=== PATIENT | male | born 1955 | race Caucasian/White ===

== ENCOUNTER → 2019-12-24 10:39 | Outpatient (BNVA) | payer BC, SELFPAY | PROVIDERS: Family Provider Family Medicine; PCP Family Medicine; Visit Provider Family Medicine | DX: I10 Essential (primary) hypertension (principal); J44.9 Chronic obstructive pulmonary disease, unspecified; E78.2 Mixed hyperlipidemia | CPT/HCPCS: 80053; 80061; 85007; 85027 ==

== ENCOUNTER → 2020-07-02 10:00 | Outpatient (BNVA) | payer BC, SELFPAY | PROVIDERS: Family Provider Family Medicine; PCP Family Medicine; Visit Provider Family Medicine | DX: E78.2 Mixed hyperlipidemia (principal); E55.9 Vitamin D deficiency, unspecified | CPT/HCPCS: 80053; 80061; 82306; 85025 ==

== ENCOUNTER → 2020-10-06 08:43 | Outpatient (BNVA) | payer BC, SELFPAY | PROVIDERS: Family Provider Family Medicine; PCP Family Medicine; Visit Provider Family Medicine | DX: D75.1 Secondary polycythemia (principal) | CPT/HCPCS: 85025 ==

== ENCOUNTER → 2020-12-29 09:22 | Outpatient (BNVA) | payer BC, SELFPAY | PROVIDERS: Family Provider Family Medicine; PCP Family Medicine; Visit Provider Family Medicine | DX: Z12.5 Encounter for screening for malignant neoplasm of prostate (principal); I10 Essential (primary) hypertension; D75.1 Secondary polycythemia; E55.9 Vitamin D deficiency, unspecified | CPT/HCPCS: 80053; 80061; 82306; 85025; G0103 ==

== ENCOUNTER → 2021-04-08 09:37 | Outpatient (BNVA) | payer BC, SELFPAY | PROVIDERS: Family Provider Family Medicine; PCP Family Medicine; Visit Provider Family Medicine | DX: E78.2 Mixed hyperlipidemia (principal); I10 Essential (primary) hypertension; I25.10 Atherosclerotic heart disease of native coronary artery without angina pectoris | CPT/HCPCS: 80053; 80061; 85025 ==

== ENCOUNTER → 2021-04-22 08:36 | Outpatient (BNVA) | payer BC, SELFPAY | PROVIDERS: Family Provider Family Medicine; PCP Family Medicine; Visit Provider Family Medicine | DX: D75.1 Secondary polycythemia (principal) | CPT/HCPCS: 85025 ==

== ENCOUNTER → 2021-05-20 08:29 | Outpatient (BNVA) | payer BC, SELFPAY | PROVIDERS: Family Provider Family Medicine; PCP Family Medicine; Visit Provider Family Medicine | DX: D75.1 Secondary polycythemia (principal) | CPT/HCPCS: 85025 ==

== ENCOUNTER → 2021-09-16 12:08 | Outpatient (BNVA) | payer BC, SELFPAY | PROVIDERS: Family Provider Family Medicine; PCP Family Medicine; Visit Provider Family Medicine | DX: E78.2 Mixed hyperlipidemia (principal); I10 Essential (primary) hypertension; J44.9 Chronic obstructive pulmonary disease, unspecified; Z87.820 Personal history of traumatic brain injury | CPT/HCPCS: 80053; 80061; 84443; 85025 ==

== ENCOUNTER → 2021-09-25 06:58 | Day surgery (SDC) | payer BC, SELFPAY ==
[2021-09-25 07:08] VITALS: BP 149/84; PULSE 67; RESP 20; TEMP 36.4; O2SAT 97; BMI 28.1
== END ==
PROVIDERS: PCP Family Medicine; Visit Provider Family Medicine
DX: D75.1 Secondary polycythemia (principal)
CPT/HCPCS: 99195

== ENCOUNTER → 2021-12-08 11:39 | Outpatient (BNVA) | payer BC, SELFPAY | PROVIDERS: PCP Family Medicine; Visit Provider Family Medicine | DX: E78.5 Hyperlipidemia, unspecified (principal); I10 Essential (primary) hypertension; I25.10 Atherosclerotic heart disease of native coronary artery without angina pectoris | CPT/HCPCS: 80053; 80061; 85025 ==

== ENCOUNTER → 2022-03-24 13:07 | Outpatient (BNVA) | payer BC, SELFPAY | PROVIDERS: PCP Family Medicine; Visit Provider Family Medicine | DX: E55.9 Vitamin D deficiency, unspecified (principal); I10 Essential (primary) hypertension; E78.5 Hyperlipidemia, unspecified; J44.9 Chronic obstructive pulmonary disease, unspecified; E78.2 Mixed hyperlipidemia; Z87.820 Personal history of traumatic brain injury; D75.1 Secondary polycythemia | CPT/HCPCS: 80053; 80061; 82306; 85025 ==

== ENCOUNTER → 2022-03-26 10:46 | Day surgery (SDC) | payer BC, SELFPAY ==
[2022-03-26 11:18] VITALS: BP 143/83; PULSE 76; RESP 18; TEMP 36.9; O2SAT 92
== END ==
PROVIDERS: PCP Family Medicine; Visit Provider Family Medicine
DX: D75.1 Secondary polycythemia (principal)
CPT/HCPCS: 99195

== ENCOUNTER → 2022-06-14 09:46 | Outpatient (BNVA) | payer BC, SELFPAY | PROVIDERS: PCP Family Medicine; Visit Provider Family Medicine | DX: Z12.5 Encounter for screening for malignant neoplasm of prostate (principal); E78.5 Hyperlipidemia, unspecified; I10 Essential (primary) hypertension; I25.10 Atherosclerotic heart disease of native coronary artery without angina pectoris | CPT/HCPCS: 80053; 80061; 85025; G0103 ==

== ENCOUNTER → 2022-09-15 12:40 | Outpatient (BNVA) | payer BC, SELFPAY | PROVIDERS: PCP Family Medicine; Visit Provider Family Medicine | DX: D75.1 Secondary polycythemia (principal); E55.9 Vitamin D deficiency, unspecified; J44.9 Chronic obstructive pulmonary disease, unspecified; E78.2 Mixed hyperlipidemia; I10 Essential (primary) hypertension | CPT/HCPCS: 80053; 80061; 82306; 84443; 85025 ==

== ENCOUNTER → 2022-12-16 10:48 | Outpatient (BNVA) | payer BC, SELFPAY | PROVIDERS: PCP Family Medicine; Visit Provider Family Medicine | DX: D75.1 Secondary polycythemia (principal) | CPT/HCPCS: 85025 ==

== ENCOUNTER → 2023-03-15 09:56 | Outpatient (BNVA) | payer BC, SELFPAY | PROVIDERS: PCP Family Medicine; Visit Provider Family Medicine | DX: D75.1 Secondary polycythemia (principal); E55.9 Vitamin D deficiency, unspecified; J44.9 Chronic obstructive pulmonary disease, unspecified; E78.5 Hyperlipidemia, unspecified; E78.2 Mixed hyperlipidemia; I10 Essential (primary) hypertension | CPT/HCPCS: 80053; 80061; 82306; 84443; 85025 ==

== ENCOUNTER → 2023-06-14 09:27 | Outpatient (BNVA) | payer BC, SELFPAY | PROVIDERS: PCP Family Medicine; Visit Provider Family Medicine | DX: D75.1 Secondary polycythemia (principal) | CPT/HCPCS: 85025 ==

== ENCOUNTER → 2023-09-12 10:40 | Outpatient (BNVA) | payer BC, SELFPAY | PROVIDERS: PCP Family Medicine; Visit Provider Family Medicine | DX: D75.1 Secondary polycythemia (principal); E78.5 Hyperlipidemia, unspecified; I10 Essential (primary) hypertension; J44.9 Chronic obstructive pulmonary disease, unspecified; E78.2 Mixed hyperlipidemia | CPT/HCPCS: 80053; 80061; 84443; 85025 ==

== ENCOUNTER → 2023-12-12 10:15 | Outpatient (BNVA) | payer BC, SELFPAY | PROVIDERS: PCP Family Medicine; Visit Provider Family Medicine | DX: Z12.5 Encounter for screening for malignant neoplasm of prostate (principal); I10 Essential (primary) hypertension; D75.1 Secondary polycythemia | CPT/HCPCS: 80053; 85025; G0103 ==

== ENCOUNTER → 2024-03-20 09:59 | Outpatient (BNVA) | payer BC, SELFPAY | PROVIDERS: PCP Family Medicine; Visit Provider Family Medicine | DX: I10 Essential (primary) hypertension (principal); E78.2 Mixed hyperlipidemia; D75.1 Secondary polycythemia | CPT/HCPCS: 80053; 80061; 84443; 85025 ==

== ENCOUNTER → 2024-06-19 13:00 | Outpatient (BNVA) | payer BC, SELFPAY | PROVIDERS: PCP Family Medicine; Visit Provider Family Medicine | DX: E55.9 Vitamin D deficiency, unspecified (principal); E78.2 Mixed hyperlipidemia; I10 Essential (primary) hypertension; J44.9 Chronic obstructive pulmonary disease, unspecified | CPT/HCPCS: 80053; 80061; 82306; 84443; 85025 ==

== ENCOUNTER → 2024-09-18 09:16 | Outpatient (BNVA) | payer BC, SELFPAY | PROVIDERS: PCP Family Medicine; Visit Provider Nurse Practitioner Family | DX: E55.9 Vitamin D deficiency, unspecified (principal) | CPT/HCPCS: 80053; 80061; 82306; 85025 ==

== ENCOUNTER 2024-10-24 09:46 | Outpatient (CLI) | payer BC, SELFPAY ==
--- NOTE | 2024-10-24 10:00 | CT_ITS ---
WS: [id number] LDCT LUNG CANCER SCREENING TECHNIQUE: Noncontrast CT of the chest with coronal and sagittal reformatted images. CLINICAL INFORMATION: F17.210 - Nicotine dependence, cigarettes, uncomplicated COMPARISON: None. DLP: 64.31 mGy.cm DIvol: Mean CTDIvol: 1.40 (mGy) All CT scans at [facility] use at least one of these dose optimization techniques: automat ed exposure control; mA and/or kV adjustment per patient size (includes targeted exams where dose is matched to clinical indication); or iterative reconstruction. FINDINGS: Lungs are well aerated. Pleural thickening in the lower lobes with pleural plaques.No suspi cious pulmonary parenchymal abnormalities. Subsegmental atelectasis in the lung bases.a a few tiny mi cronodules in the LEFT lower lobe. Cardiomegaly. Aortic calcification. Coronary calcification. Normal caliber thoracic aorta. No medias tinal or hilar lymphadenopathy. No axillary lymphadenopathy. Tiny esophageal hiatal hernia. Pleural calcifications in the lower lobes. Adrenal glands are normal. Partially visualized RIGHT upper pole renal cyst measuring 4.[address]/CT lung screening [id number] IMPRESSION: LUNG-RADS: 2-Benign Appearance or Behavior FOLLOW UP: 12 Month: Continue annual screening with LDCT
== END 2024-10-24 09:47 | disposition home or self-care (01) ==
LOC: RAD 09:50
PROVIDERS: PCP Family Medicine; Visit Provider Nurse Practitioner Family
DX: Z12.2 Encounter for screening for malignant neoplasm of respiratory organs (principal); F17.210 Nicotine dependence, cigarettes, uncomplicated; J98.11 Atelectasis; J92.9 Pleural plaque without asbestos; R91.8 Other nonspecific abnormal finding of lung field; I70.0 Atherosclerosis of aorta; I25.84 Coronary atherosclerosis due to calcified coronary lesion; J84.10 Pulmonary fibrosis, unspecified; N28.1 Cyst of kidney, acquired
CPT/HCPCS: 71271

== ENCOUNTER 2024-11-20 12:59 | Inpatient (IN) | payer BC, SELFPAY ==
[2024-11-20] VITALS (70 sets, daily range): BP systolic 87–163; BP diastolic 56–97; PULSE 98–135; RESP 16–38; TEMP 36.9; O2SAT 87–98; BMI 28.1; BMI 25.4
--- NOTE | 2024-11-20 13:16 | XRR_ITS ---
PROCEDURE INFORMATION: Exam: XR Chest Exam date and time: 11/20/2024 1:23 PM Age: 69 years old Clinical indication: Cough; Additional info: Cough, hypoxia TECHNIQUE: Imaging protocol: Radiologic exam of the chest. Views: 1 view. COMPARISON: CT lung screening [id number] 10/24/2024 10:03 AM FINDINGS: Lungs: Unchanged scarring in both lower lungs. Otherwise, unremarkable. Pleural spaces: Unchanged pleural scarring. No convincing evidence of pleural effusion. No pneumothorax. Heart/Mediastinum: Unremarkable. No cardiomegaly. Bones/joints: Unchanged mild scoliosis and spondylosis. Unchanged surgical hardware attached to the cervical spine. Otherwise, unremarkable. XR/XR chest 1V portable [id number] IMPRESSION: 1. No obvious acute disease. 2. Findings as above are believed to be chronic and unchanged.
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
--- NOTE | 2024-11-20 13:22 | ECG_ITS ---
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 Measurements Intervals [place] Rate: 102 P: 76 CO: 132 QRS: 62 QRSD: 102 T: 9 QT: 343 QTc: 448 Interpretive Statements SINUS TACHYCARDIA WITH OCCASIONAL VENTRICULAR PREMATURE COMPLEXES WITH OCCASIONAL SUPRAVENTRICULAR PREMATURE COMPLEXES RIGHT ATRIAL ENLARGEMENT [0.3mV P-WAVE] POSSIBLE LEFT ATRIAL ENLARGEMENT [-0.1mV P-WAVE IN V1/V2] NONSPECIFIC T-WAVE ABNORMALITY No previous ECG available for comparison Electronically Signed On 11-20-2024 23:59:09 RAW PRODUCTS DIRECTOR by Jaswinder Molina M.D. [email or web address]
[2024-11-20 13:30] LABS: Basophils % 0.3 %; Eosinophils % 0.2 %; Hematocrit 48.6 % (37-53); Lymphocytes # 1.9 10^3/uL (0.8-4.8); Lymphocytes % 13.5 %; Mean Corpuscular HGB Conc 30.9 g/dL (30-55); Mean Corpuscular Hemoglobin 25.7 pg (27-33); Mean Corpuscular Volume 83.4 fl (82-101); Mean Platelet Volume 10.3 fL (7.4-10.4); Monocytes # 1.3 10^3/uL (0.2-0.9); Monocytes % 8.7 %; Neutrophils # 10.98 10^3/uL (1.8-7.7); Neutrophils % 76.2 %; Nucleated Red Blood Cells % 0 %; Platelet Count 288 10^3/cmm (157-399); Red Blood Count 5.83 10^6/uL (3.85-5.65); Red Cell Distribution Width 20.2 % (12.1-15.1); White Blood Count 14.41 10^3/uL (3.29-11.43)
[2024-11-20 13:43] LABS: INR 1.02 (0.8-1.2); Partial Thromboplastin Time 33.4 SECONDS (23.9-36.7)
[2024-11-20 13:46] LABS: Lactic Sepsis W/Reflex 2.6 mmol/L (0.5-2.2)
[2024-11-20 13:48] LABS: Alanine Aminotransferase 14 U/L (0-41); Albumin Level 3.2 g/dL (3.5-5.2); Alkaline Phosphatase 78 U/L (40-130); Anion Gap 15.3 (5-19); Aspartate Amino Transferase 15 U/L (0-40); Blood Urea Nitrogen 44 mg/dL (8-23); Calcium 9.1 mg/dL (8.5-10.5); Carbon Dioxide 25 mmol/L (22-29); Chloride 101 mmol/L (98-107); Creatinine Clr Calc Pharmacy 66.8816; Globulin 4.2 g/dL (1.3-4.6); Glomerular Filtration Rate 66.4 mL/min (90-130); Glucose 112 mg/dL (65-115); Osmolality Calculated 296 mOsm/kg (285-295); Potassium 4.3 mmol/L (3.5-5.1); Sodium 137 mmol/L (136-145); Total Bilirubin 0.5 mg/dL (0.15-1.2); Total Protein 7.4 g/dL (6.6-8.7)
[2024-11-20] MEDS: ipratropium-albuterol 3 mL Neb INHALATION (13:54)
[2024-11-20 13:55] LABS: Procalcitonin 0.08 ng/mL (0-0.5)
[2024-11-20 14:02] LABS: Troponin(5th) Baseline 20 ng/L (0-15)
[2024-11-20] MEDS: oxymetazoline 0.05% Nasal Spray 15 mL 2 SPRAY NOSTRIL-L (15:10)
[2024-11-20 15:15] LABS: Reflex Lactate Order REFLEX LACTIC ORDERD
--- NOTE | 2024-11-20 15:15 | CTR_ITS ---
PROCEDURE INFORMATION: Exam: CTA Chest With Contrast Exam date and time: 11/20/2024 3:25 PM Age: 69 years old Clinical indication: Shortness of breath; Additional info: Tachy, hypoxic, tachypnea TECHNIQUE: Imaging protocol: Computed tomographic angiography of the chest with contrast. Exam focused on the arteries. 3D rendering (Not supervised by radiologist): MIP and/or 3D reconstructed images were created by the technologist. Radiation optimization: All CT scans at this facility use at least one of these dose optimization techniques: automated exposure control; mA and/or kV adjustment per patient size (includes targeted exams where dose is matched to clinical indication); or iterative reconstruction. Contrast material: OMNIPAQUE 350; Contrast volume: 100 ml; Contrast route: INTRAVENOUS (IV); COMPARISON: CT lung screening [id number] 10/24/2024 10:03 AM RADIATION DOSE METRICS: Total DLP (mGy-cm): 359.1 FINDINGS: Pulmonary arteries: Limited by slightly less than optimal pulmonary artery opacification. Limited by streak artifact. Limited by motion artifact. No obvious pulmonary embolism, but a small PE may not be evident given these limitations. Pulmonary arteries are normal in size. Aorta: Unremarkable. No aortic aneurysm. No aortic dissection. Lungs: Areas of scarring and subsegmental atelectasis in the lungs, mostly dependently and in the lower lungs. Less likely, some of this could be pneumonitis. Multiple tiny noncalcified pulmonary nodules bilaterally. Pleural spaces: Small amounts of pleural calcification could be due to old asbestos exposure, old hemothorax, or old empyema. No acute pleural abnormality. Heart: Mild cardiomegaly. No evidence of right heart strain. The right ventricular to left ventricular ratio is 0.95. Coronary arteries: Large amount of coronary artery calcification. Esophagus: Distal esophageal wall thickening. This could be esophagitis or neoplasm. Lymph nodes: Unremarkable. No enlarged lymph nodes. Kidneys: A simple right renal cyst needs no follow-up. Bones/joints: Mild scoliosis. Mild spondylosis. Surgical hardware attached to the lower cervical spine. Otherwise, unremarkable. Soft tissues: Otherwise, unremarkable visualized body wall. Otherwise, unremarkable soft tissues. Other findings: Otherwise, unremarkable visualized upper abdominal structures. CT/CT angio chest PE protcl [id number] IMPRESSION: 1. Limited by slightly less than optimal pulmonary artery opacification. Limited by streak artifact. Limited by motion artifact. No obvious pulmonary embolism, but a small PE may not be evident given these limitations. 2. Mild cardiomegaly. No evidence of right heart strain. The right ventricular to left ventricular ratio is 0.95. 3. Distal esophageal wall thickening. This could be esophagitis or neoplasm. Upper endoscopy for this is recommended. 4. Multiple tiny noncalcified pulmonary nodules bilaterally. For patients at low risk (minimal or absent history of smoking and of other known risk factors), no routine follow-up is indicated. For patients at high risk (history of smoking or of other known risk factors), consider optional CT Chest at 12 months. (Reference: Nara) 5. Additional details as above. COMMENTS: Consistent with the [place] [employer]'s Incidental Findings Committee white paper (J Am Petrona Radiol 2018): Any incidental renal lesion less than 1 cm or classified as too small to characterize, or any incidental cystic renal lesion characterized as simple-appearing, is likely benign. No follow-up imaging is recommended for these lesions per consensus recommendations based on imaging criteria. REFERENCES: Nara Torre, et al. Guidelines for Management of Incidental Pulmonary Nodules Detected on CT Images: From the Fleischner Society 2017. Radiology. 2017;284(1):228-243.
[2024-11-20 15:26] LABS: Bilirubin Urine Negative (Negative); Blood Urine Negative (Negative); Glucose Urine UA Negative (Normal); Ketones Urine Negative (Negative); Leukocyte Esterase Urine Negative (Negative); Nitrate Urine Negative (Negative); Protein Urine 1+ (Negative); Specific Gravity, Urine 1.021 (1.005-1.030); Urine Appearance Clear (CLEAR); Urine Color Yellow (Yellow); pH Urine 5.5 (5-7)
[2024-11-20] MEDS: iohexol 350 mg/mL 500 mL Btl (per mL) IV (15:26)
[2024-11-20 15:28] LABS: Add Urine Microscopic? YES; Bacteria Urine None Seen /hpf; Hyaline Casts Urine 34.74 /lpf; RBC Urine 0-2 /hpf (0-2); Squamous Epithelial Cell Urine 0-5 /hpf (0-5); WBC Urine 0-5 /hpf (0-5)
--- NOTE | 2024-11-20 15:39 | ECG_ITS ---
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1955 Requested By: Yesenia Rincon Order Number: [id number] Igor MD: MARY RODRIGEZ Measurements Intervals [place] Rate: 113 P: 73 MT: 128 QRS: 77 QRSD: 90 T: 14 QT: 354 QTc: 486 Interpretive Statements SINUS TACHYCARDIA NONSPECIFIC ST & T-WAVE ABNORMALITY ABNORMAL RHYTHM ECG Compared to ECG 11/20/2024 13:27:22 Ventricular premature complex(es) no longer present Atrial abnormality no longer present T-wave abnormality still present Electronically Signed On 11-26-2024 23:27:50 CHEMICAL PROJECT ENGINEER by MARY RODRIGEZ [email or web address]
[2024-11-20 15:47] LABS: UA Slide Review UA Slide Review Perf
[2024-11-20 16:23] LABS: Lactic Acid level (Lactate) 1.6 mmol/L (0.5-2.2)
[2024-11-20 16:27] LABS: Troponin 5 2HR 15.29 ng/L (0-15); Troponin 5 2HR Delta -4.71 ABS# (0-10)
[2024-11-20 17:21] LABS: NT Pro B Type Natriuretic Pept 789 pg/mL (0-125)
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
[2024-11-20] MEDS: piperacillin-tazobactam 3.375 GM in sodium chloride 0.9% (plus) 50 ML IV (17:43)
--- NOTE | 2024-11-20 17:46 | PC.NURSE ---
DUE TO PT CONSTANT NOSE BLEED, PT HAD A POSTERIOR RHINO ROCKET PLACED IN LEFT NARE BY DR MÉNDEZ. PT ALSO HAD TWO EPISODES OF VOMITING BRIGHT RED BLOODY EMESIS WITH CLOTS; APPROXIMATELY 500ML. DR MÉNDEZ AWARE. PT REMAINS ON BEDSIDE VITALS/CARDIAC MONITORING. PT IS A&O AT THIS TIME WITH PATENT AIRWAY AND EVEN RESPIRATIONS. DENIES FURTHER NEEDS AT THIS TIME.
[2024-11-20 18:42] LABS: Hematocrit 40.8 % (37-53)
[2024-11-20 20:03] LABS: Troponin 5 6HR 22.22 ng/L (0-15); Troponin 5 6HR Delta 2.22 ng/L (0-12)
[2024-11-20] MEDS: AZITHROMYCIN ADD-Vantage 500 MG in 0.9% NaCl ADD-Vantage 250 ML 250 MG IV (20:35)
[2024-11-20] MEDS: cefTRIAXone 1,000 mg SDV 1000 MG IVP (20:35)
[2024-11-20] MEDS: famotidine 20 mg/2 mL INJ IVP (20:37)
--- NOTE | 2024-11-20 20:44 | ECG_ITS ---
[employer] Test Date: 2024-11-20 Pat Name: Khadar Live Department: Room: [facility]05 Gender: Male Recreation Establishment Manager: : 1955 Requested By: Yesenia Rincon Order Number: [id number] Igor MD: MARY RODRIGEZ Measurements Intervals [place] Rate: 114 P: 75 HI: 138 QRS: 41 QRSD: 89 T: 24 QT: 317 QTc: 437 Interpretive Statements SINUS TACHYCARDIA POSSIBLE RIGHT ATRIAL ENLARGEMENT [0.25mV P-WAVE] LEFT ATRIAL ENLARGEMENT [-0.15mV P-WAVE IN V1/V2] NONSPECIFIC T-WAVE ABNORMALITY Compared to ECG 11/20/2024 15:39:41 Atrial abnormality now present T-wave abnormality still present Electronically Signed On 11-26-2024 23:23:08 FACILITY SERVICE ASSOCIATE by MARY RODRIGEZ [id number]
[2024-11-20] MEDS: sodium chloride 0.9% 1,000 ML 75 ML IV (21:45)
[2024-11-21] VITALS (38 sets, daily range): BP systolic 118–157; BP diastolic 65–93; PULSE 76–125; RESP 16–29; TEMP 36.3–37.1; O2SAT 87–95; BMI 25.0
[2024-11-21 00:36] LABS: Hematocrit 39.1 % (37-53)
[2024-11-21 04:37] LABS: Basophils % 0.3 %; Eosinophils % 0.3 %; Hematocrit 38.7 % (37-53); Lymphocytes # 2.5 10^3/uL (0.8-4.8); Lymphocytes % 16.5 %; Mean Corpuscular Hemoglobin 25.8 pg (27-33); Mean Platelet Volume 10.9 fL (7.4-10.4); Monocytes # 1.3 10^3/uL (0.2-0.9); Monocytes % 8.8 %; Neutrophils # 10.89 10^3/uL (1.8-7.7); Neutrophils % 73.4 %; Nucleated Red Blood Cells % 0 %; Platelet Count 245 10^3/cmm (157-399); Red Cell Distribution Width 19.8 % (12.1-15.1); White Blood Count 14.84 10^3/uL (3.29-11.43)
[2024-11-21 04:50] LABS: Alanine Aminotransferase 10 U/L (0-41); Alkaline Phosphatase 60 U/L (40-130); Anion Gap 11.6 (5-19); Aspartate Amino Transferase 12 U/L (0-40); Blood Urea Nitrogen 40 mg/dL (8-23); Calcium 8.4 mg/dL (8.5-10.5); Carbon Dioxide 29 mmol/L (22-29); Chloride 109 mmol/L (98-107); Creatinine Clr Calc Pharmacy 88.0597; Globulin 3.3 g/dL (1.3-4.6); Glomerular Filtration Rate 111.8 mL/min (90-130); Glucose 100 mg/dL (65-115); Osmolality Calculated 310 mOsm/kg (285-295); Potassium 4.6 mmol/L (3.5-5.1); Sodium 145 mmol/L (136-145); Total Bilirubin 0.4 mg/dL (0.15-1.2); Total Protein 6.3 g/dL (6.6-8.7)
--- NOTE | 2024-11-21 08:24 | ECG_ITS ---
[employer] Test Date: 2024-11-21 Pat Name: Khadar Live Department: Room: [facility]05 Gender: Male Enterprise Mobility Architect: : 1955 Requested By: Rommel Tejada Order Number: [id number] Reading MD: MARY RODRIGEZ Measurements Intervals [place] Rate: 116 P: 71 FL: 118 QRS: 37 QRSD: 95 T: 67 QT: 342 QTc: 477 Interpretive Statements SINUS TACHYCARDIA WITH SHORT FL INTERVAL WITH OCCASIONAL VENTRICULAR PREMATURE COMPLEXES LEFT ATRIAL ENLARGEMENT [-0.15mV P-WAVE IN V1/V2] POSSIBLE INFERIOR MYOCARDIAL INFARCTION , PROBABLY OLD [30 ms Q WAVE IN II/aVF] Compared to ECG 11/20/2024 20:44:31 Ventricular premature complex(es) now present Short FL interval now present Myocardial infarct finding now present T-wave abnormality no longer present Electronically Signed On 11-26-2024 23:22:58 LAY OUT MAKER by MARY RODRIGEZ [id number]
[2024-11-21] MEDS: famotidine 20 mg/2 mL INJ IVP ×2 (08:35→20:28)
[2024-11-21] MEDS: sodium chloride 0.9% 1,000 ML 75 ML IV (08:35)
--- NOTE | 2024-11-21 16:38 | P.PN_ITS ---
Subjective 2 Subjective: He reports he is doing well so far without recurrence of bleeding. He is having some productive cough. Vitals/I&O/Wt Last Vital Signs Temp 98.0 F 11/21/24 16:26 Pulse 89 11/21/24 16:26 Resp 17 11/21/24 16:26 BP 141/79 11/21/24 16:26 Pulse Ox 92 11/21/24 16:26 O2 Del Method Nasal Cannula 11/21/24 16:26 O2 Flow Rate 3.5 11/21/24 16:26 11/21/24 11/21/24 11/21/24 06:59 14:59 22:59 Intake Total 812.5 / 812.5 Output Total 425 / 1175 Balance -425 / 1177 812.5 / 812.5 Weight last 48 hrs Weight 74.5 kg Weight 76 kg Weight 83.915 kg Physical Exam 2 Const: COMMON NORMALS: patient oriented x3 and alert GENERAL APPEARANCE: c ooperative ORIENTATION/CONSCIOUSNESS: Yes awake HENMT: COMMON NORMALS: oropharynx normal OTHER: Nasal tamponade in the left nostril. Some dried crusted blood around the nostril and lips. Neck/C-Spine: COMMON NORMALS: no JVD Resp: COMMON NORMALS: normal respiratory effort AUSCULTATION: rhonchi (Few) Cardio: COMMON NORMALS: no JVD, regular rhythm, S1 normal heart sound present, S2 normal heart sound present and No murmurs present (Cardio) RHYTHM: regular rhythm HEART SOUNDS: S1 normal heart sound present and S2 normal heart sound present GI: COMMON NORMALS: Normal to inspection, nondistended, normoactive bowel sounds present, Soft to palpation and non-tender PALPATION: Yes Soft to palpation Extremity: COMMON NORMALS: no joint enlargement and no pedal edema Neuro: COMMON NORMALS: patient oriented x3 and moves all extremities S ENSORIUM/ORIENTATION: Yes alert Skin: COMMON NORMALS: no rashes or lesions noted GENERAL SKIN EXAM: no rashes or lesions noted Data 11/21/24 03:49 11/21/24 03:49 Micro: Microbiology 11/20/24 13:24 Blood Culture - Preliminary Blood NEGATIVE TO DATE 11/20/24 17:45 Blood Culture - Preliminary Blood SPECIMEN COLLECTED A&P Assessment and plan (1) Tachycardia: Sinus tachycardia, without obvious PE, although limited study CTA, he is otherwise feeling better. With new oxygen requirement, 3.5 L, not normally on oxygen, with productive cough, significant epistaxis, possible aspiration pneumonia/pneumonitis. With leukocytosis 14.84. For now continue empirically on antibiotic with ceftriaxone, azithromycin. Reassess vitals, oxygenation, blood counts. Add flutter valve. On review of EKG and do not see any extra P waves to suggest flutter. Monitor for risk of QT prolongation with azithromycin, repeat EKG. Obtain respiratory viral studies. Stop IV fluid. Monitor for fluid overload. (2) Hypoxia: Continue treatment of possible aspiration pneumonia. Check viral studies. No obvious PE on CTA. Stop IV fluids. Patient carries a diagnosis of COPD and uses inhalers at home. He is still actively smoking. He has approximately 19-skbn-woyy history. He has cut back to half a pack a day due to shortness of breath. He denies wanting to quit smoking at this time Empiric antibiotic coverage with ceftriaxone and azithromycin. Add flutter valve. Obtain sputum culture if able to provide. (3) Epistaxis: So far appears to have subsided. With possible aspiration pneumonia. Reviewed blood counts. For without rebleeding after replacement of anterior and posterior nasal packing. Continue nasal tamponade today, consider removal tomorrow. Tomorrow ENT will be back computational physicist as well. May transfer out of ICU. (4) Tobacco abuse: As above 61-kjhi-dsco history currently active smoker no intention to quit at this time (5) Vitamin D deficiency: Patient takes vitamin D2 1000 units daily (6) Hypotension: Resolved. Stop IV fluids. Amlodipine, hydrochlorothiazide, lisinopril, and metoprolol are all on hold. Patient when specifically asked did admit to dizziness upon standing at home for the last few years he has not reported this to his primary care physician nor has his regimen been altered in years. (7) HTN (hypertension): As above patient on low-doses of 4 different antihypertensives. All on hold due to hypotension and active bleeding on presentation Qualifiers: Hypertension type: essential hypertension Qualified Code(s): I10 - Essential (primary) hypertension (8) Pulmonary nodules: Will need follow-up assessment for incidental nodules on CT chest. (9) Esophageal thickening: Will need follow-up for endoscopy for incidental esophageal thickening on CT chest, possible esophagitis versus neoplasm. Plan Discussed with nursing. Discussed with rn field case manager. Attestations 2 Medical Necessity Statement*: Continue hospitalization for additional assessment of tachycardia, hypoxia, suspected aspiration pneumonia after severe epistaxis, nasal tamponade. and High MDM includes amount and/or complexity of data reviewed/ordered [ resulted lab(s)/test(s), ordered lab(s)/test(s), independent test interpretation and other healthcare professional discussion] and described risk of complication, morbidity or mortality of management as documented Diagnoses Tachycardia R00.0 Hypoxia R09.02 Epistaxis R04.0 Tobacco abuse Z72.0 Vitamin D deficiency E55.9 Hypotension I95.9 Essential hypertension I10 Hypertension type: essential hypertension Pulmonary nodules R91.8 Esophageal thickening K22.89
[2024-11-21] MEDS: cefTRIAXone 1,000 mg SDV 1000 MG IVP (20:28)
[2024-11-21] MEDS: AZITHROMYCIN ADD-Vantage 500 MG in 0.9% NaCl ADD-Vantage 250 ML 250 MG IV (20:28)
[2024-11-21 21:20] LABS: Adenovirus Not Detected (NOT DETECT); Chlamydia Pneumoniae Not Detected (NOT DETECT); Coronavirus 229E,HKU1,NL63,OC4 Not Detected (NOT DETECT); Human Metapneumovirus Not Detected (NOT DETECT); Human Rhinovirus/Enterovirus Not Detected (NOT DETECT); Influenza A Not Detected (NOT DETECT); Influenza A H1 Not Detected (NOT DETECT); Influenza A H1-2009 Not Detected (NOT DETECT); Influenza A H3 Not Detected (NOT DETECT); Influenza B Not Detected (NOT DETECT); Mycoplasma Pneumoniae Not Detected (NOT DETECT); Parainfluenza Virus Type 1 Not Detected (NOT DETECT); Parainfluenza Virus Type 2 Not Detected (NOT DETECT); Parainfluenza Virus Type 3 Not Detected (NOT DETECT); Parainfluenza Virus Type 4 Not Detected (NOT DETECT); Respiratory Syncytial Virus A Not Detected (NOT DETECT); Respiratory Syncytial Virus B Not Detected (NOT DETECT); SARS-COV-2 Not Detected (NOT DETECT)
--- NOTE | 2024-11-21 23:29 | ECG_ITS ---
[employer] [facility] Test Date: 2024-11-21 Pat Name: Khadar Live Department: Room: 269 Gender: Male Reinsurance Claims Analyst: : 1955 Requested By: Rommel Tejada Order Number: [id number] Reading MD: MARY RODRIGEZ Measurements Intervals [place] Rate: 103 P: 61 VA: 131 QRS: 31 QRSD: 94 T: 61 QT: 356 QTc: 467 Interpretive Statements SINUS TACHYCARDIA WITH OCCASIONAL VENTRICULAR PREMATURE COMPLEXES POSSIBLE LEFT ATRIAL ENLARGEMENT [-0.1mV P-WAVE IN V1/V2] POSSIBLE INFERIOR MYOCARDIAL INFARCTION , PROBABLY OLD [30 ms Q WAVE IN II/aVF] ABNORMAL RHYTHM ECG Compared to ECG 11/21/2024 08:35:30 Short [place] interval no longer present Myocardial infarct finding still present Electronically Signed On 11-23-2024 23:33:54 REVENUE COLLECTOR by MARY RODRIGEZ [id number]
[2024-11-22] VITALS (11 sets, daily range): BP systolic 112–142; BP diastolic 58–73; PULSE 86–106; RESP 14–20; TEMP 36.5–36.8; O2SAT 90–96
[2024-11-22 07:00] LABS: Basophils % 0.3 %; Eosinophils # 0.1 10^3/uL (0.0-0.8); Eosinophils % 0.5 %; Hematocrit 33.2 % (37-53); Lymphocytes # 1.6 10^3/uL (0.8-4.8); Lymphocytes % 16.2 %; Mean Corpuscular HGB Conc 29.8 g/dL (30-55); Mean Corpuscular Hemoglobin 26.7 pg (27-33); Mean Corpuscular Volume 89.5 fl (82-101); Mean Platelet Volume 10.5 fL (7.4-10.4); Monocytes # 0.8 10^3/uL (0.2-0.9); Monocytes % 7.8 %; Neutrophils # 7.11 10^3/uL (1.8-7.7); Neutrophils % 70.4 %; Nucleated Red Blood Cells % 0 %; Platelet Count 189 10^3/cmm (157-399); Red Blood Count 3.71 10^6/uL (3.85-5.65); Red Cell Distribution Width 19.8 % (12.1-15.1); White Blood Count 10.11 10^3/uL (3.29-11.43)
[2024-11-22 07:24] LABS: Anion Gap 7.3 (5-19); Blood Urea Nitrogen 21 mg/dL (8-23); Calcium 8.4 mg/dL (8.5-10.5); Carbon Dioxide 33 mmol/L (22-29); Chloride 109 mmol/L (98-107); Creatinine Clr Calc Pharmacy 88.4058; Glomerular Filtration Rate 133.6 mL/min (90-130); Glucose 81 mg/dL (65-115); Osmolality Calculated 302 mOsm/kg (285-295); Potassium 4.3 mmol/L (3.5-5.1); Sodium 145 mmol/L (136-145)
[2024-11-22] MEDS: famotidine 20 mg/2 mL INJ IVP ×2 (08:31→20:37)
--- NOTE | 2024-11-22 09:00 | ECG_ITS ---
[employer] Test Date: 2024-11-22 Pat Name: Khadar Live Department: Room: 269 Gender: Male Access Director: : 1955 Requested By: Rommel Tejada Order Number: [id number] Reading MD: MARY RODRIGEZ Measurements Intervals [place] Rate: 98 P: 72 CT: 133 QRS: 43 QRSD: 95 T: 127 QT: 355 QTc: 454 Interpretive Statements SINUS RHYTHM WITH FREQUENT VENTRICULAR PREMATURE COMPLEXES LEFT ATRIAL ENLARGEMENT [-0.15mV P-WAVE IN V1/V2] ST DEVIATION AND MODERATE T-WAVE ABNORMALITY, CONSIDER LATERAL ISCHEMIA [-0.1+ mV T-WAVE IN I/aVL/V5/V6] Compared to ECG 11/21/2024 23:29:36 T-wave abnormality now present Possible ischemia now present Sinus tachycardia no longer present Myocardial infarct finding no longer present Electronically Signed On 11-23-2024 23:33:40 MANAGER DECISION SUPPORT by MARY RODRIGEZ [id number]
--- NOTE | 2024-11-22 09:05 | PC.NURSE ---
Pt placed on O2 2L simple mask instead of 3LNC as he is a mouth breather and has a rhinorocket in left nare.
--- NOTE | 2024-11-22 11:22 | PC.NURSE ---
Oxygen sat 94% on 2L simple mask. Oxygen decreased to 1L.
--- NOTE | 2024-11-22 13:13 | P.PN_ITS ---
Subjective 2 Subjective: No acute events overnight. Patient seen at his bedside has no new complaints today. Nasal packing remains in place. No episodes of epistaxis. Vitals/I&O/Wt Last Vital Signs Temp 97.7 F 11/22/24 11:49 Pulse 103 H 11/22/24 13:11 Resp 16 11/22/24 11:49 BP 142/73 11/22/24 11:49 Pulse Ox 94 11/22/24 11:49 O2 Del Method Oxymask 11/22/24 11:49 O2 Flow Rate 2 11/22/24 11:49 11/21/24 11/22/24 11/22/24 22:59 06:59 14:59 Intake Total 490 / 1302.5 850 / 2152.5 300 / 300 Output Total 250 / 250 250 / 500 300 / 300 Balance 240 / 1052.5 600 / 1652.5 0 / 0 Weight last 48 hrs Weight 76.702 kg Weight 74.5 kg Weight 76 kg Physical Exam 2 Const: COMMON NORMALS: no acute distress, patient oriented x3 and alert HENMT: COMMON NORMALS: normocephalic, atraumatic, external ears normal, Normal external nose present (Nasal packing in place), moist oral mucous membranes and oropharynx normal HEAD & SCALP: normocephalic and atraumatic NOSE: Normal external nose present (Nasal packing in place) EXTERNAL EAR: Yes external ears normal Eye: COMMON NORMALS: Equal, round and reactive pupils present, EOMs intact bilaterally, conjunctivae normal and no scleral icterus CONJUNCTIVA: Yes conjunctivae normal PUPIL: Yes Equal, round and reactive pupils present Neck/C-Spine: COMMON NORMALS: full ROM, no lymphadenopathy and no JVD Chest: COMMONS NORMALS: normal inspection of the chest Resp: COMMON NORMALS: normal respiratory effort and clear to auscultation bilaterally AUSCULTATION: clear to auscultation bilaterally OTHER: No wheezes or crcakles Cardio: COMMON NORMALS: no JVD, regular rate, regular rhythm, S1 normal heart sound present and S2 normal heart sound present RATE: regular rate RHYTHM: regular rhythm HEART SOUNDS: S1 normal heart sound present and S2 normal heart sound present GI: COMMON NORMALS: Normal to inspection, nondistended, normoactive bowel sounds present, Soft to palpation and non-tender PALPATION: Yes Soft to palpation Extremity: COMMON NORMALS: normal to inspection and no pedal edema Neuro: COMMON NORMALS: patient oriented x3 SENSORIUM/ORIENTATION: Yes alert OTHER: No gross focal deficits Data 11/22/24 06:28 11/22/24 06:28 Micro: Microbiology 11/20/24 17:45 Blood Culture - Preliminary Blood NEGATIVE TO DATE 11/20/24 13:24 Blood Culture - Preliminary Blood NEGATIVE TO DATE A&P Assessment and plan (1) Tachycardia: -Sinus tachycardia may be in the setting of pneumonia -CTA was negative for PE, although study was limited -Continue to monitor -Will get TTE -Resume patient's metoprolol (2) Hypoxia: - Acute hypoxic respiratory insufficiency in the setting of pneumonia . Patient also has a history of COPD and continues to smoke. -Patient is on 2 L supplemental oxygen currently -Wean oxygen as tolerated (3) Epistaxis: - No further epistaxis today -Nasal packing remains in place -ENT consulted . (4) Tobacco abuse: As above 66-wmoq-kaam history currently active smoker no intention to quit at this time. Continue to encourage cessation (5) Vitamin D deficiency: Patient takes vitamin D2 1000 units daily (6) Hypotension: Resolved. Stop IV fluids. Amlodipine, hydrochlorothiazide, lisinopril, and metoprolol are all on hold. (7) HTN (hypertension): -Patient on low-doses of 4 different antihypertensives. - All on hold due to hypotension and active bleeding on presentation -We will resume antihypertensives as appropriate Qualifiers: Hypertension type: essential hypertension Qualified Code(s): I10 - Essential (primary) hypertension (8) Pulmonary nodules: Will need follow-up assessment for incidental nodules on CT chest. (9) Esophageal thickening: Will need follow-up for endoscopy for incidental esophageal thickening on CT chest, possible esophagitis versus neoplasm. (10) Pneumonia: - Chest CTA showed possible pneumonitis -Continue antibiotics with ceftriaxone and azithromycin Plan Discussed with nursing. Discussed with manager case management. Attestations 2 Medical Necessity Statement*: Patient requires inpatient stay today hypoxic respiratory insufficiency, epistaxis Coding Level of Care Code Acute Code for [facility] Diagnoses Tachycardia R00.0 Hypoxia R09.02 Epistaxis R04.0 Tobacco abuse Z72.0 Vitamin D deficiency E55.9 Hypotension I95.9 Essential hypertension I10 Hypertension type: essential hypertension Pulmonary nodules R91.8 Esophageal thickening K22.89 Pneumonia J18.9
--- NOTE | 2024-11-22 13:30 | USCV_ITS ---
Khadar Live Age: 69 Gender: M : 1955 Exam Date: 11/22/2024 14:20 Ordering Phys: Miya Wells MD Technologist: Exam Location: [facility] – [place] Indication: tach BP: 132 / 74 HR: 95 Rhythm: Sinus Technical Quality: Adequate MEASUREMENTS (Male / Female) Normal Values 2D ECHO LV Diastolic Diameter PLAX 3.7 cm 4.2 - 5.9 / 3.9 - 5.3 cm IVS Diastolic Thickness 1.2 cm 0.6 - 1.0 / 0.6 - 0.9 cm IVS Systolic Thickness 1.9 cm LVPW Diastolic Thickness 1.3 cm 0.6 - 1.0 / 0.6 - 0.9 cm LVPW Systolic Thickness 1.7 cm LVOT Diameter 2.1 cm LV Ejection Fraction 2D Teich 52.2 % LV Ejection Fraction MOD 4C 58.4 % LV Ejection Fraction MOD 2C 60.4 % LV Ejection Fraction 2C AL 59.6 % LA Diameter 3.2 cm RA Systolic Volume 4C AL 26.7 ml RA Systolic Volume 4C MOD 26.7 ml Aorta at Sinotubular Diameter 2.6 cm IVC Diameter 1.7 cm M-MODE LA Ao Ratio MM 1.2 AV Cusp Separation MM 2.2 cm DOPPLER AV Peak Velocity 160.0 cm/s LVOT Peak Velocity 87.0 cm/s AV Area Cont Eq vti 2.2 cm squared AV Area Cont Eq pk 1.8 cm squared MV Area PHT 4.2 cm squared Mitral E to A Ratio 0.9 PV Peak Velocity 130.0 cm/s FINDINGS Left Ventricle Normal left ventricular size, systolic function and wall thickness, with no regional wall motion abnormalities. Left ventricular ejection fraction is estimated at 60 %. Grade I/IV diastolic dysfunction (abnormal relaxation filling pattern), normal to mildly elevated filling pressures. Right Ventricle The right ventricle is normal in size and function. Right Atrium The right atrium is normal in size. Left Atrium The left atrium is normal in size. Mitral Valve Structurally normal mitral valve without significant stenosis or prolapse. There is no mitral regurgitation. Aortic Valve Structurally normal aortic valve without significant sclerosis or stenosis. There is no aortic regurgitation. Tricuspid Valve Structurally normal tricuspid valve without significant stenosis or regurgitation. Pulmonic Valve Structurally normal pulmonic valve without significant stenosis. There is no pulmonic regurgitation. Pericardium Normal pericardium without effusion. Aorta Normal ascending aorta dimension. IVC The inferior vena cava appears normal. CONCLUSIONS Normal left ventricular size, systolic function and wall thickness, with no regional wall motion abnormalities. Left ventricular ejection fraction is estimated at 60 %. Grade I/IV diastolic dysfunction (abnormal relaxation filling pattern), normal to mildly elevated filling pressures. No significant valve abnormalities. There is no pericardial effusion. Right atrial pressure is around 5 mm of mercury. Tigist Dawkins MD (Electronically Signed) Final Date: 22 November 2024 19:49 S
[2024-11-22] MEDS: ipratropium-albuterol 3 mL Neb INHALATION ×2 (14:38→22:49)
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
[2024-11-22] MEDS: AZITHROMYCIN ADD-Vantage 500 MG in 0.9% NaCl ADD-Vantage 250 ML 250 MG IV (20:37)
[2024-11-22] MEDS: metoprolol tartrate 25 mg Tablet 12.5 MG PO (20:37)
[2024-11-22] MEDS: cefTRIAXone 1,000 mg SDV 1000 MG IVP (20:37)
[2024-11-22] MEDS: budesonide 0.5 mg/2 mL Neb INHALATION (22:49)
[2024-11-23] VITALS (11 sets, daily range): BP systolic 113–135; BP diastolic 70–76; PULSE 75–89; RESP 15–19; TEMP 36.2–36.8; O2SAT 82–96
[2024-11-23] MEDS: ipratropium-albuterol 3 mL Neb INHALATION ×3 (04:12→13:12)
[2024-11-23] MEDS: famotidine 20 mg/2 mL INJ IVP (08:10)
[2024-11-23] MEDS: metoprolol tartrate 25 mg Tablet 12.5 MG PO (08:10)
[2024-11-23] MEDS: budesonide 0.5 mg/2 mL Neb INHALATION (08:21)
--- NOTE | 2024-11-23 11:34 | P.DS_ITS ---
Discharge Providers Date of Admission: 11/20/24 16:45 Date of Discharge: November 23, 2024 Attending Provider at Admission: Neymar Sultana DO Attending Provider at Discharge: Miya Wells MD Consults: ENT - Dr. Lozano Primary Care Provider: Shona Coronado MD Diagnoses at Discharge Discharge Diagnosis (1) Epistaxis: Status: Acute (2) Hypoxia: Status: Acute (3) Pneumonia: Status: Acute (4) Tachycardia: Status: Acute (5) Esophageal thickening: Status: Acute (6) Pulmonary nodules: Status: Acute Reason for Visit Reason for Visit: Nosebleed, Cough Hospital Course Hospital Course In summary, Mr Khadar Live is a 69 year old male With history of hypertension who presented for further evaluation of epistaxis. He was found to be hypotensive with a blood pressure of 80/40, he was tachycardic with a heart rate of around 110 as well as hypoxic with pulse ox of 86 on room air. He was placed on 4 L nasal cannula given an IV fluid bolus and his blood pressure. He was admitted for further evaluation and management. Acute hypoxic respiratory failure is in the setting of COPD, pneumonia . He received IV antibiotics, breathing treatments and had improvement in his symptoms. Epistaxis required packing. Patient was evaluated by ENT and will follow [facility] ENT on Tuesday to remove the packing and further evaluation. Patient noted to have sinus tachycardia, CT PE was negative for pulmonary embolism although the study was limited. TTE also showed a normal EF. His chronic metoprolol was resumed. Patient will complete course of antibiotics wi th Augmentin and follow-up with ENT. Patient has pulmonary nodules and will need follow-up assessment for incidental nodules on CT chest. He will be referred to pulmonology. Patient also needs to follow-up with gastroenterology for further evaluation of esophageal thickening seen on CT of the chest. Physical Exam Const: COMMON NORMALS: no acute distress, patient oriented x3 and alert HENMT: COMMON NORMALS: normocephalic (Nasal packing in place), atraumatic, external ears normal, Normal external nose present, moist oral mucous membranes and oropharynx normal HEAD & SCALP: normocephalic (Nasal packing in place) and atraumatic NOSE: Normal external nose present EXTERNAL EAR: Yes external ears normal Eye: COMMON NORMALS: Equal, round and reactive pupils present, EOMs intact bilaterally, conjunctivae normal and no scleral icterus CONJUNCTIVA: Yes conjunctivae normal PUPIL: Yes Equal, round and reactive pupils present Neck/C-Spine: COMMON NORMALS: full ROM, no lymphadenopathy and no JVD Chest: COMMONS NORMALS: normal inspection of the chest Resp: COMMON NORMALS: normal respiratory effort and clear to auscultation bilaterally AUSCULTATION: clear to auscultation bilaterally OTHER: No wheezes or crcakles Cardio: COMMON NORMALS: no JVD, regular rate, regular rhythm, S1 normal heart sound present and S2 normal heart sound present RATE: regular rate RHYTHM: regular rhythm HEART SOUNDS: S1 normal heart sound present and S2 normal heart sound present GI: COMMON NORMALS: Normal to inspection, nondistended, normoactive bowel sounds present and non-tender Extremity: COMMON NORMALS: normal to inspection and no pedal edema Neuro: COMMON NORMALS: patient oriented x3 SENSORIUM/ORIENTATION: Yes alert OTHER: No gross focal deficits Discharge Data Studies Completed and Pending Completed Studies During Hospitalization Category Date Time Status CTA chest [CT angio chest PE protcl [id number]] Stat Cat Scan 11/20/24 15:15 Completed XR chest 1V portable [id number] Urgent Exams 11/20/24 13:16 Completed CV. echo complete* [id number] Routine Ultrasound 11/22/24 13:30 Completed Pending at discharge Category Date Time Status Blood Culture Stat Lab 11/20/24 17:45 Results Sputum Culture and Gram Stain Routine Lab 11/21/24 16:49 Uncollected Radiology Impressions Chest X-Ray 11/20/24 13:16 IMPRESSION: 1. No obvious acute disease. 2. Findings as above are believed to be chronic and unchanged. Chest CTA 11/20/24 15:15 IMPRESSION: 1. Limited by slightly less than optimal pulmonary artery opacification. Limited by streak artifact. Limited by motion artifact. No obvious pulmonary embolism, but a small PE may not be evident given these limitations. 2. Mild cardiomegaly. No evidence of right heart strain. The right ventricular to left ventricular ratio is 0.95. 3. Distal esophageal wall thickening. This could be esophagitis or neoplasm. Upper endoscopy for this is recommended. 4. Multiple tiny noncalcified pulmonary nodules bilaterally. For patients at low risk (minimal or absent history of smoking and of other known risk factors), no routine follow-up is indicated. For patients at high risk (history of smoking or of other known risk factors), consider optional CT Chest at 12 months. (Reference: Nara) 5. Additional details as above. COMMENTS: Consistent with the [employer]'s Incidental Findings Committee white paper (J Am Petrona Radiol 2018): Any incidental renal lesion less than 1 cm or classified as too small to characterize, or any incidental cystic renal lesion characterized as simple-appearing, is likely benign. No follow-up imaging is recommended for these lesions per consensus recommendations based on imaging criteria. REFERENCES: Nara Torre, et al. Guidelines for Management of Incidental Pulmonary Nodules Detected on CT Images: From the Fleischner Society 2017. Radiology. 2017;284(1):228-243. Laboratory Results WBC 10.11 10^3/uL (3.29-11.43) 11/22/24 06:28 RBC 3.71 10^6/uL (3.85-5.65) L 11/22/24 06:28 Hgb 9.90 g/dL (11.27-16.99) L 11/22/24 06:28 Hct 33.2 % (37-53) L 11/22/24 06:28 MCV 89.5 fl (82-101) 11/22/24 06:28 MCH 26.7 pg (27-33) L 11/22/24 06:28 MCHC 29.8 g/dL (30-55) L 11/22/24 06:28 RDW 19.8 % (12.1-15.1) H 11/22/24 06:28 Plt Count 189 10^3/cmm (157-399) 11/22/24 06:28 MPV 10.5 fL (7.4-10.4) H 11/22/24 06:28 Neut % (Auto) 70.4 % 11/22/24 06:28 Lymph % (Auto) 16.2 % 11/22/24 06:28 Giles % (Auto) 7.8 % 11/22/24 06:28 Eos % (Auto) 0.5 % 11/22/24 06:28 Baso % (Auto) 0.3 % 11/22/24 06:28 Neut # (Auto) 7.11 10^3/uL (1.8-7.7) 11/22/24 06:28 Lymph # (Auto) 1.6 10^3/uL (0.8-4.8) 11/22/24 06:28 Giles # (Auto) 0.8 10^3/uL (0.2-0.9) 11/22/24 06:28 Eos # (Auto) 0.1 10^3/uL (0.0-0.8) 11/22/24 06:28 Baso # (Auto) 0.0 10^3/uL (0.0-0.1) 11/22/24 06:28 Nucleated RBC % (auto) 0 % 11/22/24 06:28 Nucleated RBCs # 0.0 /100WBC 11/22/24 06:28 PT 14.10 SECONDS (12.1-14.9) 11/20/24 13:24 INR 1.02 (0.8-1.2) 11/20/24 13:24 APTT 33.4 SECONDS (23.9-36.7) 11/20/24 13:24 Sodium 145 mmol/L (136-145) 11/22/24 06:28 Potassium 4.3 mmol/L (3.5-5.1) 11/22/24 06:28 Chloride 109 mmol/L (98-107) H 11/22/24 06:28 Carbon Dioxide 33 mmol/L (22-29) H 11/22/24 06:28 Anion Gap 7.3 (5-19) 11/22/24 06:28 BUN 21 mg/dL (8-23) 11/22/24 06:28 Creatinine 0.6 mg/dL (0.7-1.2) L 11/22/24 06:28 GFR Calculation 133.6 mL/min (90-130) H 11/22/24 06:28 Glucose 81 mg/dL (65-115) 11/22/24 06:28 Calculated Osmolality 302 mOsm/kg (285-295) H 11/22/24 06:28 Lactic Acid 2.6 mmol/L (0.5-2.2) H 11/20/24 13:24 Lactic Acid (Sepsis) 1.6 mmol/L (0.5-2.2) 11/20/24 15:44 Calcium 8.4 mg/dL (8.5-10.5) L 11/22/24 06:28 Total Bilirubin 0.4 mg/dL (0.15-1.2) 11/21/24 03:49 AST 12 U/L (0-40) 11/21/24 03:49 ALT 10 U/L (0-41) 11/21/24 03:49 Alkaline Phosphatase 60 U/L (40-130) 11/21/24 03:49 Troponin T Baseline 20 ng/L (0-15) H 11/20/24 13:24 Troponin T 120 Minute 15.29 ng/L (0-15) H 11/20/24 15:44 Delta Troponin T -4.71 ABS# (0-10) L 11/20/24 15:44 Troponin T Hi Sens 6Hr 22.22 ng/L (0-15) H 11/20/24 19:30 Troponin T Hi Sens 6Hr Delta 2.22 ng/L (0-12) 11/20/24 19:30 NT-Pro-B Natriuret Pep 789 pg/mL (0-125) H 11/20/24 13:24 Total Protein 6.3 g/dL (6.6-8.7) L 11/21/24 03:49 Albumin 3.0 g/dL (3.5-5.2) L 11/21/24 03:49 Globulin 3.3 g/dL (1.3-4.6) 11/21/24 03:49 Procalcitonin 0.08 ng/mL (0-0.5) 11/20/24 13:24 Urine Color Yellow (Yellow) 11/20/24 15:17 Urine Appearance Clear (CLEAR) 11/20/24 15:17 Urine pH 5.5 (5-7) 11/20/24 15:17 Ur Specific [place] 1.021 (1.005-1.030) 11/20/24 15:17 Urine Protein 1+ (Negative) A 11/20/24 15:17 Urine Glucose (UA) Negative (Normal) 11/20/24 15: Urine Ketones Negative (Negative) 11/20/24 15:17 Urine Blood Negative (Negative) 11/20/24 15:17 Urine Nitrate Negative (Negative) 11/20/24 15:17 Urine Bilirubin Negative (Negative) 11/20/24 15: Urine Urobilinogen 1.0 mg/dL (Negative) 11/20/24 15:17 Ur Leukocyte Esterase Negative (Negative) 11/20/24 15:17 Urine RBC 0-2 /hpf (0-2) 11/20/24 15:17 Urine WBC 0-5 /hpf (0-5) 11/20/24 15:17 Ur Squamous Epith Cells 0-5 /hpf (0-5) 11/20/24 15:17 Amorphous Sediment Not Reportable 11/20/24 15:17 Urine Bacteria None seen /hpf (NONE) 11/20/24 15: Hyaline Casts 34.74 /lpf 11/20/24 15:17 Adenovirus (PCR) Not detected (NOT DETECT) 11/21/24: C. pneumoniae DNA (PCR) Not detected (NOT DETECT) 11/21/24 Coronavirus 229E (PCR) Not detected (NOT DETECT) 11/21/24 Human Metapneumovir PCR Not detected (NOT DETECT) 11/21/24 Influenza A (H1) PCR Not detected (NOT DETECT) 11/21/24: Influ A (H1/09) PCR Not detected (NOT DETECT) 11/21/24 Influenza A (H3) PCR Not detected (NOT DETECT) 11/21/24: Influenza Type A (PCR) Not detected (NOT DETECT) 11/21/24 Influenza Type B (PCR) Not detected (NOT DETECT) 11/21/24: M. pneumoniae (PCR) Not detected (NOT DETECT) 11/21/24: Parainfluenza 1 (PCR) Not detected (NOT DETECT) 11/21/24: Parainfluenza 2 (PCR) Not detected (NOT DETECT) 11/21/24: Parainfluenza 3 (PCR) Not detected (NOT DETECT) 11/21/24: Parainfluenza 4 (PCR) Not detected (NOT DETECT) 11/21/24 RSV Type A (PCR) Not detected (NOT DETECT) 11/21/24 RSV Type B (PCR) Not detected (NOT DETECT) 11/21/24: Entero/Rhino (PCR) Not detected (NOT DETECT) 11/21/24 SARS-CoV-2 (PCR) Not detected (NOT DETECT) 11/21/24 19:29 Vitals Last Vital Signs Temp 97.5 F L 11/23/24 08:00 Pulse 88 11/23/24 08:21 Resp 18 11/23/24 08:21 BP 113/71 11/23/24 08:00 Pulse Ox 82 L 11/23/24 10:46 O2 Del Method Oxymask 11/23/24 08:21 O2 Flow Rate 2 11/23/24 10:46 Discharge Plan Discharge Patient Disposition: Home Condition: Stable Prescriptions: New amoxicillin-pot clavulanate 875-125 mg tablet 1 tab PO BID Qty: 7 0RF Continued atorvastatin 10 mg tablet 10 mg PO DAILY Qty: 90 2RF albuterol sulfate [Ventolin HFA] 90 mcg/actuation HFA aerosol inhaler 2 inh inhalation Q6H PRN (Reason: shortness of breath or wheezing) Qty: 18 3RF cholecalciferol (vitamin D3) 50 mcg (2,000 unit) tablet 2,000 unit PO DAILY Qty: 30 4RF lisinopril 20 mg tablet 20 mg PO BID amlodipine 5 mg tablet 5 mg PO DAILY Rx Instructions: Take 1 tablet by mouth once daily metoprolol tartrate 25 mg tablet 12.5 mg PO BID tiotropium bromide [Spiriva with HandiHaler] 18 mcg capsule, w/inhalation device 1 cap inhalation DAILY Rx Instructions: Inhale 1 puff by mouth once daily hydrochlorothiazide 12.5 mg tablet 12.5 mg PO DAILY Held aspirin [Adult Low Dose Aspirin] 81 mg tablet,delayed release (DR/EC) 81 mg PO DAILY Hold Instructions: After follow up with ENT Discharge Orders: Discharge Order (Routine); Ordered 11/23/24 Ordered By: Miya Wells Other Ambulatory Orders: DME: Oxygen (Order) Location: None Selected Ordered By: Josewatson Wells Referrals: Selvin Hernandez DO [Physician] - 2 weeks (Esophageal thickening, endoscopy We have notified your physician's clinic of the need for a follow-up appointment to be scheduled. If you have not heard from them within the next 2 business days, please call them directly. ) Damaso Marti MD [Physician] - 2 weeks (Pulmonary nodules) Gino Lozano MD [Physician] - 11/26/24 2:45 pm () Shona Coronado MD [Primary Care Provider] - 11/28/24 12:00 pm (appointment with grant obando) Discharge Diet: Usual diet Discharge Activity: Resume usual activity Patient Instructions: Amoxicillin/Clavulanate Potassium (By mouth), Nosebleed (GEN), Using Oxygen at Home (GEN), Opioid Safety Activity Restrictions/Additional Instructions: Complete course antibiotics Check complete blood count within 1 week and send results to PCP Discharge Attestations Time Spent in Discharge Care*: greater than 30 min Quality Metrics Clinical Quality Measures [ No reported AMI, CVA or VTE this stay] Coding Level of Care Code Acute Code for Chg Fwd Diagnoses Epistaxis R04.0 Hypoxia R09.02 Pneumonia J18.9 Tachycardia R00.0 Esophageal thickening K22.89 Pulmonary nodules R91.8
[2024-11-23 13:03] LABS: Hematocrit 29.4 % (37-53); Mean Corpuscular HGB Conc 30.6 g/dL (30-55); Mean Corpuscular Hemoglobin 26.4 pg (27-33); Mean Corpuscular Volume 86.2 fl (82-101); Mean Platelet Volume 10.6 fL (7.4-10.4); Platelet Count 183 10^3/cmm (157-399); Red Blood Count 3.41 10^6/uL (3.85-5.65); Red Cell Distribution Width 19.3 % (12.1-15.1); White Blood Count 8.93 10^3/uL (3.29-11.43)
[2024-11-23 13:51] LABS: Absolute Segmented Neutrophil 6.7 10/cmm (1.6-7.1); Band Neutrophils Absolute 0.3 10^3/cmm (0.0-1.2); Segmented Neutrophils 75 %; Total Cells Counted 100 (0-100)
[2024-11-23 13:52] LABS: Eosinophils 0 %; Lymphocytes 16 %; Lymphocytes Absolute 1.4 10^3/cmm (1.2-3.4); Monocytes Absolute 0.5 10^3/cmm (0.1-0.6); Platelet Estimate Normal (Normal)
--- NOTE | 2024-11-23 14:00 | PC.NURSE ---
Discharge instructions provided to pt and his mother. NO questions or concerns voiced at this time. To private vehicle via wheelchair with all belongings
== END 2024-11-23 14:01 | disposition home or self-care (01) | DRG 177 ==
LOC: ER 16:43 → ER IP 16:46 → ICU 17:20 → MEDSURG 11-21 16:19
PROVIDERS: Emergency Medicine; Internal Medicine; Admitting Provider Internal Medicine; Emergency Provider Physician Assistant; PCP Family Medicine; Visit Provider Student in an Organized Health Care Education/Training Program
DX: J69.0 Pneumonitis due to inhalation of food and vomit (principal); J96.01 Acute respiratory failure with hypoxia; J44.9 Chronic obstructive pulmonary disease, unspecified; R04.0 Epistaxis; R00.0 Tachycardia, unspecified; R91.8 Other nonspecific abnormal finding of lung field; I10 Essential (primary) hypertension; I95.9 Hypotension, unspecified; F17.210 Nicotine dependence, cigarettes, uncomplicated; I25.2 Old myocardial infarction; Z79.82 Long term (current) use of aspirin; E74.39 Other disorders of intestinal carbohydrate absorption; I25.5 Ischemic cardiomyopathy; D75.1 Secondary polycythemia; Z87.820 Personal history of traumatic brain injury; E78.5 Hyperlipidemia, unspecified; E55.9 Vitamin D deficiency, unspecified; Z98.1 Arthrodesis status; I25.10 Atherosclerotic heart disease of native coronary artery without angina pectoris; Z83.3 Family history of diabetes mellitus
CPT/HCPCS: 36415; 71045; 71275; 80048; 80053; 81001; 83605; 83880; 84145; 84484; 85007; 85014; 85018; 85025; 85027; 85610; 85730; 87040; 87486; 87581; 87633; 93005; 93306; 94640; 94760; 96365; 96376; 99285; 99291; J0456; J0696; J2543; J3490; J7030; J7050; J7626

== ENCOUNTER → 2024-11-28 12:41 | Outpatient (BNVA) | payer BC, SELFPAY | PROVIDERS: PCP Family Medicine; Visit Provider Nurse Practitioner Family | DX: R04.0 Epistaxis (principal) | CPT/HCPCS: 85025 ==

== ENCOUNTER → 2024-12-28 08:56 | Outpatient (BNVA) | payer BC, SELFPAY | PROVIDERS: Family Provider Nurse Practitioner Family; PCP Nurse Practitioner Family; Visit Provider Nurse Practitioner Family | DX: D75.1 Secondary polycythemia (principal) | CPT/HCPCS: 85025 ==

== ENCOUNTER 2025-01-02 07:41 | Day surgery (SDC) | payer BC, SELFPAY ==
[2025-01-02 08:13] VITALS: BP 127/65; PULSE 70; RESP 18; TEMP 36.6; O2SAT 92; BMI 26.6
[2025-01-02] MEDS: sodium chloride 0.9% 500 ML 15 ML IV (08:19)
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
--- NOTE | 2025-01-02 08:42 | W.PM.OPSUD ---
Surgery/Procedure H&P Update DATE OF PROCEDURE: January 02, 2025 DATE H&P PERFORMED: 12/24/24 H&P UPDATE INFORMATION: I have reviewed H&P completed within last 30 days, I have examined patient prior to procedure and No changes to prior documentation PLANNED PROCEDURE: Operation Date: 01/02/25 08:45 Proposed Procedures p EGD Dilation W/ Balloon 46332, 31864, G0105, K22.89, Z12.11(Not Applicable) - DO tori Gamble Colonoscopy(Not Applicable) - Selvin Hernandez DO
[2025-01-02 09:35] VITALS: BP 97/62; PULSE 71; RESP 18; TEMP 36.3; O2SAT 100
--- NOTE | 2025-01-02 10:05 | ANE.PACU2 ---
Inpatient post-anesthesia follow up: Airway intact: Yes Vital signs: Temperature 97.3 F Pulse Rate 71 Respiratory Rate 18 Blood Pressure 97/62 Pulse Oximetry 100 Oxygen Delivery Me thod Nasal Cannula Oxygen Flow Rate 2 Fraction of Inspir ed Oxygen Hydration adequate: Yes Nausea and vomiting: No Pain level: 1 Mental status: Baseline
== END 2025-01-02 10:05 | disposition home or self-care (01) ==
PROVIDERS: PCP Nurse Practitioner Family; Visit Provider Surgery
PROC: 0DJD8ZZ Inspection of Lower Intestinal Tract, Via Natural or Artificial Opening Endoscopic (ICD-10-PCS; CPT 45378; 2025-01-02 08:45)
DX: Z12.11 Encounter for screening for malignant neoplasm of colon (principal); D12.3 Benign neoplasm of transverse colon; K29.50 Unspecified chronic gastritis without bleeding; N40.2 Nodular prostate without lower urinary tract symptoms; K57.30 Diverticulosis of large intestine without perforation or abscess without bleeding; K22.2 Esophageal obstruction; K44.9 Diaphragmatic hernia without obstruction or gangrene; K08.409 Partial loss of teeth, unspecified cause, unspecified class; J44.9 Chronic obstructive pulmonary disease, unspecified; Z99.81 Dependence on supplemental oxygen; I10 Essential (primary) hypertension; I25.5 Ischemic cardiomyopathy; K21.9 Gastro-esophageal reflux disease without esophagitis; E78.5 Hyperlipidemia, unspecified; D64.9 Anemia, unspecified; Z79.899 Other long term (current) drug therapy; Z79.82 Long term (current) use of aspirin; I25.2 Old myocardial infarction; Z87.820 Personal history of traumatic brain injury; F17.210 Nicotine dependence, cigarettes, uncomplicated; Z98.1 Arthrodesis status; Z86.0100 Personal history of colon polyps, unspecified; I25.10 Atherosclerotic heart disease of native coronary artery without angina pectoris
CPT/HCPCS: 43239; 43249; 45385; 88305; 88342; J2704; J3490; J7040

== ENCOUNTER 2025-01-24 13:53 | Emergency (ER) | payer BC, SELFPAY ==
[2025-01-24 13:55] VITALS: BP 129/80; PULSE 84; RESP 18; TEMP 36.7; O2SAT 92; BMI 26.6
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
--- NOTE | 2025-01-24 14:17 | CTR_ITS ---
PROCEDURE INFORMATION: Exam: CT Abdomen And Pelvis With Contrast Exam date and time: 01/24/2025 4:27 PM Age: 69 years old Clinical indication: Abdominal pain; Generalized; Prior surgery; Surgery date: 6+ months; Surgery type: Exploratory; Additional info: Abd pain TECHNIQUE: Imaging protocol: Computed tomography of the abdomen and pelvis with contrast. Radiation optimization: All CT scans at this facility use at least one of these dose optimization techniques: automated exposure control; mA and/or kV adjustment per patient size (includes targeted exams where dose is matched to clinical indication); or iterative reconstruction. Contrast material: OMNIPAQUE 350; Contrast volume: 100 ml; Contrast route: INTRAVENOUS (IV); COMPARISON: CT angio chest PE protcl [id number] 11/20/2024 3:25 PM RADIATION DOSE METRICS: Total DLP (mGy-cm): 525.93 FINDINGS: Lungs: Unremarkable. Heart: Mild cardiomegaly. Esophagus: Partially visualized fluid-filled esophagus with mild wall thickening. Liver: See Spleen finding. Gallbladder and biliary ducts: Normal. No calcified stones. No ductal dilation. Pancreas: Normal. No ductal dilation. Spleen: Multiple calcifications are visualized within spleen and liver. Adrenal glands: Normal. No mass. Kidneys and ureters: 5.6 cm and 4.7 cm simple appearing right renal cysts. 1.8 cm simple appearing left renal cysts. Additional subcentimeter bilateral renal hypodensities. These are not completely characterized but are likely benign cysts. In the absence of risk factors, no further workup is recommended. Mild left hydronephrosis and hydroureter with 8 mm obstructing stone within mid left ureter (coronal image 30). Stomach and bowel: Large colonic stool burden. Colonic diverticulosis. Appendix: No evidence of appendicitis. Intraperitoneal space: 8 mm rounded calcification within left-sided mesenteric fat (4/39), nonspecific. Vasculature: Severe atherosclerosis of the abdominal aorta and its main branches with fusiform aneurysmal dilatation measuring up to 3.4 cm. Lymph nodes: Unremarkable. No enlarged lymph nodes. Urinary bladder: Unremarkable as visualized. Reproductive: Unremarkable as visualized. Bones/joints: Unremarkable. No acute fracture. Soft tissues: Postsurgical changes within anterior abdominal wall. CT/CT abdomen pelvis w con* [id number] IMPRESSION: 1. Mild left hydronephrosis with 8 mm obstructing stone within mid left ureter. 2. 5.6 cm and 4.7 cm simple appearing right renal cysts. 1.8 cm simple appearing left renal cysts. No further imaging is required. 3. Additional subcentimeter bilateral renal hypodensities. These are not completely characterized but are likely benign cysts. In the absence of risk factors, no further workup is recommended. 4. Fusiform aneurysmal dilatation of the abdominal aorta measuring up to 3.4 cm with severe atherosclerosis. 5. Scattered calcifications adjacent to diaphragm, liver and spleen which may represent sequela of prior trauma or healed infectious process. 6. Partially visualized fluid-filled esophagus with mural thickening, which may be seen with esophagitis or neoplasm. 7. Mild cardiomegaly. COMMENTS: Consistent with the [employer]'s Incidental Findings Committee white paper (J Am Petrona Radiol 2018): Any incidental renal lesion less than 1 cm or classified as too small to characterize, or any incidental cystic renal lesion characterized as simple-appearing, is likely benign. No follow-up imaging is recommended for these lesions per consensus recommendations based on imaging criteria.
[2025-01-24 14:45] LABS: Bilirubin Urine Negative (Negative); Blood Urine 2+ (Negative); Glucose Urine UA Negative (Normal); Ketones Urine Negative (Negative); Leukocyte Esterase Urine Negative (Negative); Nitrate Urine Negative (Negative); Protein Urine Trace (Negative); Specific Gravity, Urine 1.016 (1.005-1.030); Urine Appearance Clear (CLEAR); Urine Color Yellow (Yellow)
[2025-01-24 14:47] LABS: Add Urine Microscopic? YES; Bacteria Urine None Seen /hpf; Hyaline Casts Urine 1.21 /lpf; RBC Urine 21-50 /hpf (0-2); Squamous Epithelial Cell Urine 0-5 /hpf (0-5); Universal Test for UA Present (0); WBC Urine 0-5 /hpf (0-5)
--- NOTE | 2025-01-24 14:59 | PC.PHAR ---
Addendum entered by Saritha Eid 01/24/25 15:00: No medications taken yet today. Original Note: Pt uses [facility] mail order pharmacy and has a copy of his medications with him.
[2025-01-24 15:00] VITALS: PULSE 75; O2SAT 97
[2025-01-24 15:57] LABS: UA Slide Review UA Slide Review Perf
[2025-01-24 16:00] VITALS: PULSE 91; O2SAT 96
[2025-01-24 16:01] LABS: Add Urine Culture? Yes
[2025-01-24 16:15] LABS: Alanine Aminotransferase 7 U/L (0-41); Alkaline Phosphatase 64 U/L (40-130); Anion Gap 18.4 (5-19); Aspartate Amino Transferase 15 U/L (0-40); Blood Urea Nitrogen 21 mg/dL (8-23); Calcium 9.6 mg/dL (8.5-10.5); Carbon Dioxide 25 mmol/L (22-29); Chloride 102 mmol/L (98-107); Creatinine Clr Calc Pharmacy 71.7806; Glomerular Filtration Rate 74.1 mL/min (90-130); Glucose 87 mg/dL (65-115); Osmolality Calculated 296 mOsm/kg (285-295); Potassium 3.4 mmol/L (3.5-5.1); Sodium 142 mmol/L (136-145); Total Bilirubin 0.5 mg/dL (0.15-1.2)
[2025-01-24] MEDS: iohexol 350 mg/mL 500 mL Btl (per mL) IV (16:31)
[2025-01-24 17:21] LABS: Basophils % 0.3 %; Eosinophils % 0.1 %; Hematocrit 36.1 % (37-53); Lymphocytes # 1.5 10^3/uL (0.8-4.8); Lymphocytes % 21.9 %; Mean Corpuscular HGB Conc 28.8 g/dL (30-55); Mean Corpuscular Hemoglobin 21.8 pg (27-33); Mean Corpuscular Volume 75.8 fl (82-101); Mean Platelet Volume 10.2 fL (7.4-10.4); Monocytes # 0.5 10^3/uL (0.2-0.9); Neutrophils # 4.76 10^3/uL (1.8-7.7); Neutrophils % 70.4 %; Nucleated Red Blood Cells % 0 %; Platelet Count 240 10^3/cmm (157-399); Red Blood Count 4.76 10^6/uL (3.85-5.65); Red Cell Distribution Width 21.8 % (12.1-15.1); White Blood Count 6.76 10^3/uL (3.29-11.43)
[2025-01-24 17:22] VITALS: BP 161/87; PULSE 88; O2SAT 92
[2025-01-24 18:10] VITALS: BP 143/79; PULSE 87; O2SAT 96
== END 2025-01-24 18:12 | disposition home or self-care (01) ==
PROVIDERS: Emergency Provider Family Medicine; PCP Nurse Practitioner Family
DX: N20.0 Calculus of kidney (principal); K21.9 Gastro-esophageal reflux disease without esophagitis; K59.00 Constipation, unspecified; Z79.82 Long term (current) use of aspirin; E78.5 Hyperlipidemia, unspecified; I10 Essential (primary) hypertension; J44.9 Chronic obstructive pulmonary disease, unspecified
CPT/HCPCS: 36415; 51798; 74177; 80053; 81001; 85025; 87086; 99285

== ENCOUNTER → 2025-02-20 12:19 | Outpatient (BNVA) | payer BC, SELFPAY | PROVIDERS: PCP Nurse Practitioner Family; Visit Provider Nurse Practitioner Family | DX: I10 Essential (primary) hypertension (principal); E78.2 Mixed hyperlipidemia; D64.9 Anemia, unspecified | CPT/HCPCS: 80053; 80061; 82607; 82728; 82746; 83550; 84443; 85025 ==

== ENCOUNTER → 2025-03-04 08:57 | Outpatient (BNVA) | payer BC, SELFPAY | PROVIDERS: PCP Nurse Practitioner Family; Visit Provider Nurse Practitioner Family | DX: Z12.5 Encounter for screening for malignant neoplasm of prostate (principal) | CPT/HCPCS: 84153 ==

== ENCOUNTER → 2025-04-16 09:25 | Outpatient (BNVA) | payer BC, SELFPAY | PROVIDERS: PCP Nurse Practitioner Family; Visit Provider Nurse Practitioner Family | DX: D50.9 Iron deficiency anemia, unspecified (principal) | CPT/HCPCS: 85025 ==

== ENCOUNTER → 2025-05-22 09:15 | Outpatient (BNVA) | payer BC, SELFPAY | PROVIDERS: PCP Nurse Practitioner Family; Visit Provider Nurse Practitioner Family | DX: D50.9 Iron deficiency anemia, unspecified (principal) | CPT/HCPCS: 80053; 80061; 82306; 82728; 83550; 85025 ==

== ENCOUNTER → 2025-05-24 11:25 | Outpatient (BNVA) | payer BC, SELFPAY | PROVIDERS: PCP Nurse Practitioner Family; Visit Provider Nurse Practitioner Family | DX: J98.11 Atelectasis (principal) | CPT/HCPCS: 71046 ==

== ENCOUNTER → 2025-06-07 13:00 | Outpatient (BNVA) | payer BC, SELFPAY | PROVIDERS: PCP Nurse Practitioner Family; Visit Provider Nurse Practitioner Family | DX: D75.1 Secondary polycythemia (principal) | CPT/HCPCS: 85025 ==

== ENCOUNTER → 2025-06-10 13:41 | Outpatient (BNVA) | payer BC, SELFPAY | PROVIDERS: PCP Nurse Practitioner Family; Visit Provider Nurse Practitioner Family | DX: M54.50 Low back pain, unspecified (principal); M25.551 Pain in right hip; M25.78 Osteophyte, vertebrae; M43.16 Spondylolisthesis, lumbar region; I71.40 Abdominal aortic aneurysm, without rupture, unspecified; M47.816 Spondylosis without myelopathy or radiculopathy, lumbar region; M16.9 Osteoarthritis of hip, unspecified; M16.11 Unilateral primary osteoarthritis, right hip; M25.751 Osteophyte, right hip | CPT/HCPCS: 72100; 73502 ==

== ENCOUNTER 2025-06-18 09:06 | Outpatient (CLI) | payer BC, SELFPAY ==
--- NOTE | 2025-06-18 09:15 | CT_ITS ---
WS: [id number] CT chest wo con [id number] HISTORY: R05.9 - Cough, unspecified TECHNIQUE: Axial imaging performed through the thorax. Coronal and sagittal reformats are submitted. All CT scans at [facility] use at least one of these dose optimization techniques: automated exposure control; mA and/or kV adjustment per patient size (includes targeted exams where dose is matched to clinical indication); or iterative reconstruction. CONTRAST: None DLP: 342.17 mGy.cm COMPARISON: 11/20/2024 Lungs and central airway: Improved aeration at the lung bases compared to 11/20/2024. There is remaining areas of bandlike atelectasis and scarring in the lower lung jasso. Mild pleural thickening. No mass. Pleura: No pleural effusions. Pleural thickening and mild nodularity involving the inferior RIGHT major fissure. Associated atelectasis. Heart and pericardium: Mild cardiomegaly. Mediastinum and tristin: No mediastinum or hilar adenopathy. Vessels: Moderate atherosclerosis thoracic aorta. No aneurysm. Mild pulmonary artery enlargement. Extensive coronary artery calcifications. Chest wall and lower neck: No soft tissue masses. Upper abdomen: No adrenal mass. Visualized liver is normal size. Hepatic granulomata. Otherwise negative. Incompletely included 5.8 cm RIGHT renal cyst. Osseous structures: Remote fracture posterior LEFT 10th rib. CT/CT chest wo con [id number] IMPRESSION: 1. Improved aeration at the lung bases since 11/20/2024. No areas of consolidat ion or mass. 2. Bandlike areas of atelectasis in the lower lung jasso with pleural thicken ing and associated atelectasis along the inferior RIGHT major fissure. 3. Moderate atherosclerosis thoracic aorta. 4. Extensive coronary artery calcifications. 5. RIGHT renal cyst. Incompletely visualized.
== END 2025-06-18 09:07 | disposition home or self-care (01) ==
LOC: RAD 09:07
PROVIDERS: PCP Nurse Practitioner Family; Visit Provider Nurse Practitioner Family
DX: R05.9 Cough, unspecified (principal); J98.11 Atelectasis; J92.9 Pleural plaque without asbestos; I70.0 Atherosclerosis of aorta; I25.84 Coronary atherosclerosis due to calcified coronary lesion
CPT/HCPCS: 71250

== ENCOUNTER → 2025-08-21 09:06 | Outpatient (BNVA) | payer BC, SELFPAY | PROVIDERS: PCP Nurse Practitioner Family; Visit Provider Nurse Practitioner Family | DX: D64.9 Anemia, unspecified (principal) | CPT/HCPCS: 85025 ==

== ENCOUNTER 2025-09-16 09:52 | Outpatient (CLI) | payer BC, SELFPAY ==
--- NOTE | 2025-09-16 10:00 | US_ITS ---
WS: [id number] RENAL ULTRASOUND HISTORY: N28.1 - Cyst of kidney, acquired COMPARISON: CT 06/18/2025, CT 01/24/2025 TECHNIQUE: 2-D and color Doppler imaging of the kidney submitted. Right kidney: 11.2 cm x 4.9 cm x 6.2 cm. Cortex: 1.0 cm Normal size kidney with no hydronephrosis. Parapelvic cyst reidentified measures 3.7 x 3.2 x 4.1 cm. There are additional scattered renal cysts. The largest from the superior pole measures 5.6 x 6.3 x 7.0 cm. No solid mass or obstruction identified. Left kidney: 11.2 cm x 5.6 cm x 5.4 cm. Cortex: 1.2 cm Normal size kidney. No hydronephrosis. Cortical cyst. There are additional too small to characterize cortical hypoechoic nodules. Largest cyst measures 2.0 x 1.4 x 1.6 cm. Aorta: Normal. Urinary Bladder: Normal distention. US/US renal BI* [id number] IMPRESSION: 1. Bilateral renal cysts as described above. Larger cyst associated with the R IGHT kidney. 2. No hydronephrosis. 3. Some of the cortical echogenicity is within the LEFT kidney are too small t o characterize completely.
== END 2025-09-16 09:53 | disposition home or self-care (01) ==
LOC: RAD 09:53
PROVIDERS: PCP Nurse Practitioner Family; Visit Provider Nurse Practitioner Family
DX: N28.1 Cyst of kidney, acquired (principal)
CPT/HCPCS: 76770